=== PATIENT | female | born 1985 | race African-American/Black ===

== ENCOUNTER 2020-11-04 10:48 | Outpatient (CLI) | payer OTHER, SELFPAY ==
--- NOTE | ~2020-11-04 | XR_ITS ---
EXAMINATION: XR shoulder LT min 2V DATE: 11/04/2020 11:13 INDICATION: Left shoulder pain post fall TECHNIQUE: AP internally and externally rotated, AP oblique externally rotated and transscapular Y vi ews of the left shoulder were obtained. COMPARISON: None FINDINGS: Alignment is normal. No fracture. Glenohumeral joint is normal. Acromioclavicular joint is normal. So ft tissues are unremarkable. Visualized portions of the lungs are clear. IMPRESSION: Negative left shoulder radiographs. Reviewed, dictated and finalized at location B.
--- NOTE | ~2020-11-04 | XR_ITS ---
EXAMINATION: XR wrist LT 2V DATE: 11/04/2020 11:14 INDICATION: Left wrist pain. Fall. TECHNIQUE: 2 views of left wrist were obtained. COMPARISON: None. FINDINGS: Bone alignment is normal. No fracture. Joint spaces are well maintained. IMPRESSION: 1. Normal left wrist. Reviewed, dictated and finalized at location A. IMPRESSION: 1. Normal left wrist.
== END 2020-11-04 10:49 | disposition home or self-care (01) ==
LOC: CHSIMG 10:51
PROVIDERS: PCP Nurse Practitioner Family; Visit Provider Nurse Practitioner Family
DX: M25.512 Pain in left shoulder (principal); M25.532 Pain in left wrist
CPT/HCPCS: 73030; 73100

== ENCOUNTER 2021-07-03 12:43 | Outpatient (CLI) | payer BC, SELFPAY ==
[2021-07-03 14:22] LABS: SARS-CoV-2 RNA PCR Negative (Negative)
== END 2021-07-03 12:44 | disposition home or self-care (01) ==
PROVIDERS: PCP Nurse Practitioner Family; Visit Provider Nurse Practitioner Family
DX: Z20.822 Contact with and (suspected) exposure to COVID-19 (principal)
CPT/HCPCS: C9803; U0003; U0005

== ENCOUNTER 2021-08-07 17:41 | Outpatient (CLI) | payer BC, SELFPAY ==
[2021-08-07 18:43] LABS: SARS-CoV-2 Ag Negative (Negative)
== END 2021-08-07 17:42 | disposition home or self-care (01) ==
LOC: CHSLAB 17:43
PROVIDERS: PCP Nurse Practitioner Family; Visit Provider Nurse Practitioner Family
DX: Z20.822 Contact with and (suspected) exposure to COVID-19 (principal)
CPT/HCPCS: 87426; C9803

== ENCOUNTER 2021-10-12 13:17 | Outpatient (CLI) | payer BC, SELFPAY ==
--- NOTE | ~2021-10-12 | XR_ITS ---
EXAMINATION: XR knee LT 3V DATE: 10/12/2021 13:36 INDICATION: Left knee pain. TECHNIQUE: 3 views of left knee were obtained. COMPARISON: None. FINDINGS: Bone alignment is normal. No fracture. There is mild osteoarthritis of patellofemoral francis rtment characterized by tiny osteophytes. No knee joint effusion. IMPRESSION: 1. Mild left knee osteoarthritis. Reviewed, dictated and finalized at location A.
== END 2021-10-12 13:18 | disposition home or self-care (01) ==
LOC: CHSIMG 13:20
PROVIDERS: PCP Family Medicine; Visit Provider Family Medicine
DX: M25.562 Pain in left knee (principal); R53.83 Other fatigue
CPT/HCPCS: 73562

== ENCOUNTER 2022-01-05 16:02 | Emergency (ER) | payer BC, SELFPAY ==
--- NOTE | ~2022-01-05 | XR_ITS ---
XR ankle LT min 3V DATE: 01/05/2022 17:25 INDICATION: Fall. Left ankle pain and swelling TECHNIQUE: 4 views COMPARISON: None FINDINGS: No fracture or dislocation of the ankle or disruption of the ankle mortise. No periosteal r eaction or bone destruction. IMPRESSION: Negative Reviewed, dictated and finalized at location A. IMPRESSION: Negative
--- NOTE | ~2022-01-05 | XR_ITS ---
XR foot LT min 3V DATE: 01/05/2022 17:25 INDICATION: Fall. Left ankle and foot pain and swelling TECHNIQUE: 4 views COMPARISON: None FINDINGS: No fracture or dislocation, periosteal reaction or bone destruction. IMPRESSION: No fracture or dislocation Reviewed, dictated and finalized at location A. IMPRESSION: No fracture or dislocation
[2022-01-05 16:05] VITALS: BP 124/85; PULSE 100; RESP 18; TEMP 36.7; O2SAT 100
--- NOTE | 2022-01-05 17:32 | ED.LOWEXIN ---
HPI - Extremity Injury (Lower) General Chief Complaint: Extremity Injury, Lower Stated Complaint: LT foot injury Time Seen by Provider: 01/05/22 16:06 Source: patient and RN notes reviewed Mode of arrival: wheelchair Limitations: no limitations History of Present Illness complaint: ankle injury and foot injury Onset (ago): day(s) (1) Injury: Left: ankle and foot Type of Injury: inversion Place: home Severity: mild Severity scale (1-10): 5 Relieving factors: nothing Exacerbating factors: weight bearing Context: fall Associated symptoms: snap/pop sensation and swelling Other symptoms: none Treatments prior to arrival: cold therapy and bandage Related Data Home Medications Medication Instructions Recorded Confirmed etonogestrel 68 mg subdermal 1 implant subdermal ONCE 10/23/20 01/05/22 implant (Nexplanon) Allergies Allergy/AdvReac Type Severity Reaction Status Date / Time aspirin Allergy Intermediate Other Verified 01/06/22 09:41 metronidazole [Flagyl] Allergy Intermediate Other Verified 01/06/22 09:41 nitrofurantoin [Macrobid] Allergy Intermediate Other Verified 01/06/22 09:41 ondansetron [Zofran] Allergy Intermediate Other Verified 01/06/22 09:41 Review of Systems Review of Systems: All systems reviewed & are unremarkable except as noted in HPI and below Constitutional: Constitutional: Reports no additional constitutional complaints Eyes: Eyes: Reports no additional eye complaints ENT: Reports system reviewed and no additional complaints, except as documented Cardiovascular: Cardiovascular: Reports no additional cardiovascular complaints Respiratory: Respiratory: Reports no additional respiratory complaints Gastrointestinal: Gastrointestinal: Reports no additional gastrointestinal complaints Genitourinary: Genitourinary: Reports no additional female genitourinary complaints Musculoskeletal: Musculoskeletal: Reports no additional musculoskeletal complaints Integumentary/Breasts: Skin/Breast: Reports system reviewed and no additional complaints, except as docu Neurologic: Reports system reviewed and no additional complaints, except as documented Psychiatric: Psychiatric: Reports no additional psychiatric complaints Endocrine: Endocrine: Reports no additional endocrine complaints Hematologic/Lymphatic: Hematologic/Lymphatic: Reports no additional hematologic/lymphatic complaints Allergic/Immunologic: Allergic/Immunologic: Reports no additional allergic/immunologic complaints [facility] Past Medical History Medical History Ankle sprain Family History Family History Mother Family history of type 2 diabetes mellitus Social History Social History Smoking status: Never smoker Exam Const: General: healthy appearing and no acute distress Nutritional Appearance: well nourished Orientation/consciousness: patient oriented x3 Limitations: no limitations HENMT: Head: normal to inspection Ears: external ears normal, TM's normal bilaterally and EAC's normal General nose exam: Normal external nose present and Normal nares present Face and sinus: normal facial exam and sinuses nontender Mouth: Yes Normal oral and palatal mucosa present and Yes moist mucous membranes Teeth and gingiva: dentition normal Throat: posterior oropharynx normal Eyes: Conjunctivae: conjunctivae normal Pupils: Equal, round and reactive pupils present EOM: EOMs intact bilaterally Neck: Neck: normal visual inspection, no lymphadenopathy and no meningeal signs Chest: Chest palpation & inspection: normal inspection of the chest Resp: Effort & Inspection: normal respiratory effort Auscultation: clear to auscultation bilaterally Cardio: Rate: regular rate Rhythm: regular rhythm GI: GI Palp: Yes Soft to palpation and No Tenderness to palpation present (GI)
[2022-01-05] MEDS: IBUPROFEN 400 MG TABLET 800 MG PO (17:34)
--- NOTE | 2022-01-05 18:05 | PC.NURSE ---
+PMS POST SHORT LEG APPLICATION. PT TOLERATED WELL.
[2022-01-05 18:15] VITALS: BP 128/76; PULSE 68; RESP 14; O2SAT 99
== END 2022-01-05 18:10 | disposition home or self-care (01) ==
PROVIDERS: Emergency Provider Emergency Medicine; PCP Family Medicine
DX: S93.402A Sprain of unspecified ligament of left ankle, initial encounter (principal)
CPT/HCPCS: 29515; 73610; 73630; 99284; A9270

== ENCOUNTER 2022-01-13 10:01 | Outpatient (RCR) | payer BC, SELFPAY ==
--- NOTE | 2022-01-13 13:41 | PTOPEVAL ---
Thank you for referring Omar Burton to [facility].? The patient is scheduled to be seen for therapy? ____x/week for ___ weeks. Please review, sign, date and return this plan of care TORRES. I agree with and certify that the following plan of care is medically necessary. Referring Physician Date Admitting Provider: Attending Provider: Hever Barrett DO Referring Provider: *PT Outpatient Evaluation Start: 01/13/22 09:47 Freq: Status: Active Protocol: Document 01/13/22 10:00 [facility] (Rec: 01/13/22 11:34 [facility] [id number]) Therapy Assessment Status Assessment Status Assessment Status Evaluation Outpatient Past Medical History Reproductive History Hx Section Yes: X4 Evaluation Information Problem Diagnosis L Ankle Pain Onset 01/05/22 Additional Evaluation Detail LEFS = 74% Functionally Impaired Subjective Information Pt reports that about a week Query Text:As Reported By Patient/ ago, she was carrying [employer] with her daughter and stepped wrong on her L foot. She says that she felt a pop and intense pain. She then went to the ER to see if she broke anything. XRAYs were negative. When walking on her foot without her boot on, she has pain on the bottom of her heel and up the back of her heel. When sitting, she has pain on the front of her good. She has been walking with the boot and crutches, but says that she is hesitant to walk much on her foot due to pain and unsteadiness. Walking also increases her ankle swelling. She has been icing and elevating her ankle while at home to keep her swelling and pain down. Prior Level of Function Comments Additional Prior Level of Function She used to be able to run Comments without difficulty and carryout any household task she wanted. Pain Assessment Timing of Pain Assessment Timing of Pain Assessment Pre-Treatment Pain Scale Pain Scale Used Numeric (1 - 10) Self Report Pain Assessment Left Ankle(s) Reported Pain Level 3 Lowest Pain Intensity 3 Greatest Pain Intensity
--- NOTE | 2022-05-04 07:48 | PCPTNOTE ---
janiyarina has not been back to therapy since January. as of this date, she will be dc'd from skilled PT services due to lack of return to finish POC. SOO
== END 2022-02-10 23:59 | disposition home or self-care (01) ==
LOC: CHSPT 10:01
PROVIDERS: PCP Family Medicine; Visit Provider Family Medicine
DX: S93.402A Sprain of unspecified ligament of left ankle, initial encounter (principal)
CPT/HCPCS: 97014; 97016; 97110; 97112; 97140; 97161; G0283

== ENCOUNTER 2022-05-10 08:32 | Outpatient (CLI) | payer BC, SELFPAY ==
[2022-05-10 09:38] LABS: Strep Group A RT-PCR Not Detected (Negative)
[2022-05-10 09:45] LABS: Influenza A QL RT-PCR Negative (Negative); Influenza B QL RT-PCR Negative (Negative); SARS-CoV-2 RNA PCR Negative (Negative)
== END 2022-05-10 08:33 | disposition home or self-care (01) ==
PROVIDERS: PCP Family Medicine; Visit Provider Family Medicine
DX: J06.9 Acute upper respiratory infection, unspecified (principal); Z20.822 Contact with and (suspected) exposure to COVID-19
CPT/HCPCS: 87502; 87651; C9803; U0003; U0005

== ENCOUNTER 2022-08-09 11:39 | Outpatient (CLI) | payer BC, SELFPAY ==
--- NOTE | 2022-08-09 11:54 | PC.NURSE ---
ambulatory for OP fluids and medications for headache, to 201
[2022-08-09] MEDS: SODIUM CHLORIDE 0.9% IV 1,000 ML 500 ML IVPB (12:09)
[2022-08-09] MEDS: PROCHLORPERAZINE EDISYLATE 10 MG/2 ML VIAL IV PUSH (12:13)
[2022-08-09] MEDS: diphenhydrAMINE HCl INJ 50 MG/ML VIAL IV PUSH (12:13)
--- NOTE | 2022-08-09 12:31 | PC.NURSE ---
frances mist, warm blanket and cool cloth to forehead per request, fluids infusing, medications given IV
--- NOTE | 2022-08-09 14:17 | PC.NURSE ---
discharged ambulatory with spouse, headache slightly better, feeling tired, advised to change position slowly, rest today
== END 2022-08-09 11:40 | disposition home or self-care (01) ==
LOC: CHSTREATRM 11:45
PROVIDERS: PCP Family Medicine; Visit Provider Family Medicine
DX: R51.9 Headache, unspecified (principal)
CPT/HCPCS: 96360; 96361; 96374; 96375; J0780; J1200; J7030

== ENCOUNTER 2022-11-03 13:09 | Outpatient (CLI) | payer BC, SELFPAY ==
--- NOTE | ~2022-11-03 | US_ITS ---
EXAMINATION: US venous doppler [facility] DATE: 11/03/2022 13:52 INDICATION: Left lower limb pain. TECHNIQUE: Grayscale ultrasound images without and with compression and Doppler ultrasound images of the left lower extremity veins were obtained. COMPARISON: None. FINDINGS: The visualized portions of left common femoral vein, profunda (deep) femoral vein, femoral vein, popl iteal vein, peroneal veins, posterior tibial veins, and greater saphenous vein outflow are patent. IMPRESSION: 1. No deep venous thrombosis. Reviewed, dictated and finalized at location A.
== END 2022-11-03 13:10 | disposition home or self-care (01) ==
LOC: CHSIMG 13:10
PROVIDERS: PCP Family Medicine; Visit Provider Nurse Practitioner Family
DX: R09.89 Other specified symptoms and signs involving the circulatory and respiratory systems (principal); M79.662 Pain in left lower leg
CPT/HCPCS: 93971

== ENCOUNTER 2022-11-04 10:34 | Outpatient (RCR) | payer BC, SELFPAY ==
--- NOTE | 2022-11-04 11:43 | PTOPEVAL1 ---
Assessment and note entered by JT File, PT Evaluation Information Assessment Status Evaluation Diagnosis sciatica Onset 11/01/22 Subjective Information patient reports she is having an acute flare up of sciatica in the L LE. she reports she has been managing sciatica for years. she reports she has started a new job lately that has her standing and walking more which has increased her pain. she reports it has been flare up most recently for the last month. she reports the pain goes all the way down the L LE. she describes her symptoms as toothache like pain or a braulio horse that wont go away. Reported Pain Level Pain Score 8: Self Report Assessment PT Clinical Summary mrs. siddiqui presents to skilled PT services for evaluation and treatment of L sciatica. she presents with signs and symptoms of L lumbar root pain causing sensory changes and pain in the L LE. she maintains strength equal to the R side. she would benefit from skilled PT services to improve her objective/functional deficits and progress towards a return to her prior level functional activity performance and quality of life. Plan of Care Interventions Electrical Stimulation,Hot Pack/Cold Pack,Manual Therapy,Neuro Re-education,Patient/Caregiver Educati,Therapeutic Activities,Therapeutic Exercise PT Services Indicated Yes Treatment Frequency and 3x weekly for 9 visits Duration These treatments will address the objective and functional deficits as defined above. The patient will be advanced safely and appropriately in order for the patient to progress towards his/her prior level of function. Additional exercises will be introduced and as well as a comprehensive home exercise program upon discharge, if needed, ?to ensure carryover of functional gains achieved in the clinic. This treatment plan has been reviewed and agreement upon by the patient.
--- NOTE | 2022-11-11 10:12 | PCPTNOTE ---
11/11/22 Mrs. Burton arrives to therapy today in increased pain in the lower back. She is having worse pain down her L LE, and now it is including the R LE. She is reporting worsening symptoms of numbness, tingling, and cramping in the bilateral LE's. Patient reports she is unable to stand for more than 20-30 minutes. She is not responding to treatment thus far, and therefore I would recommend patient follow up with MD, acquire an MRI of the lumbar spine, and be off work until symptoms begin to reduce. Duarte Martinez, DPT [phone]
== END 2022-11-11 23:59 | disposition home or self-care (01) ==
LOC: CHSPT 10:34
PROVIDERS: PCP Family Medicine; Visit Provider Nurse Practitioner Family
DX: M54.30 Sciatica, unspecified side (principal)
CPT/HCPCS: 97014; 97110; 97161; G0283

== ENCOUNTER 2022-11-15 09:45 | Outpatient (CLI) | payer BC, SELFPAY ==
--- NOTE | ~2022-11-15 | MR_ITS ---
MRI of the lumbar spine Clinical History: Sciatica, foot drop Technique: Axial T2-weighted images, and sagittal T1-weighted, T2-weighted, and T2 fat-sat images wer e acquired. Findings: There is no fracture the lumbar spine. There is a grade 1 retrolisthesis of L5 over S1. No bone marrow signal abnormality seen. At L1-L2, L2-L3, there is no disc bulge or herniation. No spinal canal stenosis or neural foraminal n arrowing. L3-L4, there is left foraminal disc bulge. There is minimal central canal stenosis. There is moderate to advanced left neural foraminal narrowing. Right neural foramen preserved. At L4-L5, there is no disc bulge or herniation. No spinal canal stenosis or neural foraminal narrowin g. At L5-S1, there is broad-based disc protrusion centrally, which in conjunction with mild facet arthro abby, results in severe thecal sac compression. There is moderate to severe bilateral neural foramin al narrowing. Paravertebral soft tissues are unremarkable. Impression: Severe thecal sac compression L5-S1, related to central posterior disc protrusion, likely superimpose d upon mild disc bulge. Associated moderate to severe bilateral neural foraminal narrowing is low. Left foraminal disc bulge at L3-L4, with associated moderate to advanced left neural foraminal narrow ing at this level. Minimal grade 1 retrolisthesis of L5 over S1. Reviewed, dictated and finalized at [facility]. Impression: Severe thecal sac compression L5-S1, related to central posterior disc protrusi on, likely superimposed upon mild disc bulge. Associated moderate to severe nelson ateral neural foraminal narrowing is low. Left foraminal disc bulge at L3-L4, with associated moderate to advanced left n eural foraminal narrowing at this level. Minimal grade 1 retrolisthesis of L5 over S1.
== END 2022-11-15 09:46 | disposition home or self-care (01) ==
PROVIDERS: PCP Family Medicine; Visit Provider Family Medicine
DX: M21.379 Foot drop, unspecified foot (principal); M54.30 Sciatica, unspecified side; G95.29 Other cord compression; M48.061 Spinal stenosis, lumbar region without neurogenic claudication; M51.36 Other intervertebral disc degeneration, lumbar region; M43.16 Spondylolisthesis, lumbar region
CPT/HCPCS: 72148

== ENCOUNTER 2023-02-10 10:22 | Outpatient (CLI) | payer BC, SELFPAY ==
--- NOTE | ~2023-02-10 | XR_ITS ---
Left wrist Technique: PA, oblique, lateral, and ulnar deviation views were obtained. Clinical History: Pain Findings: No acute fracture or dislocation is seen. Osseous alignment is anatomic. Joint spaces are p reserved. Soft tissues are unremarkable. Impression: Unremarkable left wrist radiographs. Reviewed, dictated and finalized at location . Impression: Unremarkable left wrist radiographs.
== END 2023-02-10 10:23 | disposition home or self-care (01) ==
LOC: CHSIMG 10:24
PROVIDERS: PCP Nurse Practitioner Family; Visit Provider Nurse Practitioner Family
DX: S69.92XA Unspecified injury of left wrist, hand and finger(s), initial encounter (principal)
CPT/HCPCS: 73110

== ENCOUNTER 2023-02-26 09:45 | Emergency (ER) | payer BC, SELFPAY ==
--- NOTE | ~2023-02-26 | XR_ITS ---
XR lumbar spine 2-3V DATE: 02/26/2023 10:45 INDICATION: Low back pain radiating to right leg. History of spinal stenosis. TECHNIQUE: AP, lateral, coned lateral lumbosacral views COMPARISON: November 15, 2022 MRI lumbar spine FINDINGS: The pedicles appear relatively short in AP dimension which may be consistent with clinical history of primary spinal stenosis. Normal alignment of the lumbar spine. No fracture, spondylolisthesis or bone destruction is evident. Included lower thoracic and lumbar pedicles are intact. Lumbar and lumbosacral interspaces appear relatively preserved. The sacroiliac joints are intact. Prevascular prominently calcified density overlying the right upper quadrant, likely due to cholelith iasis. IMPRESSION: Suggestion of primary lumbar spinal stenosis Probable 1.5 cm calcified gallstone Reviewed, dictated and finalized at location A.
[2023-02-26 10:00] VITALS: BP 142/82; PULSE 108; RESP 20; TEMP 37.1; O2SAT 98
--- NOTE | 2023-02-26 10:08 | ED.BACK ---
HPI - Back Pain/Injury General Chief Complaint: Back Pain/Injury Stated Complaint: lower back pain Time Seen by Provider: 02/26/23 09:46 Source: patient Mode of arrival: ambulatory Limitations: no limitations History of Present Illness HPI Narrative: patient is a 37-year-old female with chronic lumbar spinal stenosis and disc herniation. She sees a neurosurgeon and they do spine injections which were done over a month ago. Unfortunately, she fell in the last few weeks and possibly irritated her lumbar spine. MD elicited complaint: back pain, back injury and fall Pertinent past history: prior back pain and recent trauma ( Patient fell a few weeks ago and landed on her right arm /hand and felt like she irritated her lower back chronic problems) Onset (ago): day(s) (3) Timing: constant Severity: moderate Pain scale (0-10): 10 Similar Symptoms Previously: Yes Quality: sharp Location: lumbar spine Radiation: buttocks and left upper leg Exacerbating factors: none Relieving factors: none Associated symptoms: denies other symptoms Work related injury: No Related Data Home Medications Medication Instructions Recorded Confirmed etonogestrel 68 mg subdermal 1 implant subdermal ONCE 10/23/20 02/26/23 implant (Nexplanon) semaglutide (weight loss) 0.5 0.5 mg subcut WEEKLY 02/26/23 02/26/23 mg/0.5 mL subcutaneous pen injector (Wegovy) Allergies Allergy/AdvReac Type Severity Reaction Status Date / Time aspirin Allergy Intermediate Other Verified 02/26/23 10:09 metronidazole [Flagyl] Allergy Intermediate Other Verified 02/26/23 10:09 nitrofurantoin [Macrobid] Allergy Intermediate Other Verified 02/26/23 10:09 ondansetron [Zofran] Allergy Intermediate Other Verified 02/26/23 10:09 Review of Systems Review of Systems: All systems reviewed & are unremarkable except as noted in HPI and below Constitutional: Constitutional: Reports no additional constitutional complaints Eyes: Eyes: Reports no additional eye complaints ENT: Reports system reviewed and no additional complaints, except as documented Cardiovascular: Cardiovascular: Reports no additional cardiovascular complaints Respiratory: Respiratory: Reports no additional respiratory complaints Gastrointestinal: Gastrointestinal: Reports no additional gastrointestinal complaints Genitourinary: Genitourinary: Reports no additional female genitourinary complaints Musculoskeletal: Musculoskeletal: Reports no additional musculoskeletal complaints Integumentary/Breasts: Skin/Breast: Reports system reviewed and no additional complaints, except as docu Neurologic: Reports system reviewed and no additional complaints, except as documented Psychiatric: Psychiatric: Reports no additional psychiatric complaints Endocrine: Endocrine: Reports no additional endocrine complaints Hematologic/Lymphatic: Hematologic/Lymphatic: Reports no additional hematologic/lymphatic complaints Allergic/Immunologic: Allergic/Immunologic: Reports no additional allergic/immunologic complaints PMFSH Past Medical History Medical History Ankle sprain Family History Family History Mother Family history of type 2 diabetes mellitus Social History Social History Smoking status: Never smoker Lack of Transportation: No Lack of Food: Never True Current Housing: I Have Housing Concerned About Future Housing: No Difficulty Paying Gas/Electric Bills: No Difficulty Paying for Meds: No Currently Unemployed: No Education: High School Diploma/GED Difficulty w/ Childcare or Family Care: No Exam Const: General: healthy appearing Nutritional Appearance: well nourished Orientation/consciousness: patient oriented x3 Limitations: no limitations HENMT: Head: normal to inspection Ears: external ears normal Face/Nose
[2023-02-26 10:15] LABS: Appearance Urine Clear (Clear); Bilirubin Urine Negative (Negative); Blood Urine Negative (Negative); Color Urine Light Yellow (Yellow); Glucose Urine UA Negative (Negative); Ketones Urine Negative (Negative); Leukocyte Esterase Ur 2+ (Negative); Nitrate Urine Negative (Negative); Protein Urine Negative (Negative); Urobilinogen Urine 0.2 mg/dL (0.2-1.0)
[2023-02-26] MEDS: KETOROLAC (*BKC) 60 MG/2 ML VIAL IM (10:16)
[2023-02-26] MEDS: predniSONE 20 MG TABLET 40 MG PO (10:17)
[2023-02-26 10:21] LABS: Add Urine Microscopic? NO; Bacteria Urine 3+ /hpf; Budding Yeast Urine Present /hpf; RBC Urine 0-2 /hpf (0-2); Squamous Epithelial Cell Urine Moderate /hpf (Few)
[2023-02-26 10:23] LABS: Pregnancy On Board Control Positive; Urine Pregnancy Test Negative
[2023-02-26 11:52] VITALS: BP 138/78; PULSE 98; RESP 20; TEMP 36.9; O2SAT 99
== END 2023-02-26 11:56 | disposition home or self-care (01) ==
PROVIDERS: Emergency Provider Emergency Medicine
DX: B37.49 Other urogenital candidiasis (principal); M54.32 Sciatica, left side; N30.00 Acute cystitis without hematuria; M48.061 Spinal stenosis, lumbar region without neurogenic claudication; W19.XXXA Unspecified fall, initial encounter
CPT/HCPCS: 72100; 81003; 81025; 96372; 99283; J1885; J7512

== ENCOUNTER 2023-04-14 17:03 | Outpatient (CLI) | payer BC, SELFPAY ==
[2023-04-14 17:49] LABS: Strep Group A RT-PCR NOT DETECTED (Negative)
== END 2023-04-14 17:04 | disposition home or self-care (01) ==
LOC: CHSLAB 17:05
PROVIDERS: PCP Family Medicine; Visit Provider Family Medicine
DX: J02.9 Acute pharyngitis, unspecified (principal)
CPT/HCPCS: 87651

== ENCOUNTER 2023-04-21 17:00 | Outpatient (CLI) | payer BC, SELFPAY ==
[2023-04-21 17:13] LABS: Appearance Urine Slightly Cloudy (Clear); Bilirubin Urine Negative (Negative); Blood Urine Negative (Negative); Color Urine Light Yellow (Yellow); Glucose Urine UA Negative (Negative); Ketones Urine Negative (Negative); Leukocyte Esterase Ur 1+ LEU/UL (Negative); Nitrate Urine Negative (Negative); Protein Urine Negative (Negative); Specific Grav Ur >= 1.030 (1.010-1.020)
[2023-04-21 17:17] LABS: Add Urine Microscopic? YES; RBC Urine None seen /hpf (0-2)
[2023-04-21 17:18] LABS: Bacteria Urine 1+ /hpf; Squamous Epithelial Cell Urine Many /hpf (Few)
[2023-04-22 10:26] LABS: Pregnancy On Board Control Positive; Urine Pregnancy Test Negative
== END 2023-04-21 17:01 | disposition home or self-care (01) ==
LOC: CHSLAB 17:02
PROVIDERS: Nurse Practitioner Family; PCP Nurse Practitioner Family; Visit Provider Nurse Practitioner Family
DX: R35.0 Frequency of micturition (principal); R11.0 Nausea; R82.90 Unspecified abnormal findings in urine
CPT/HCPCS: 81001; 81025; 87086

== ENCOUNTER 2023-06-07 14:46 | Outpatient (CLI) | payer BC, SELFPAY ==
[2023-06-07 15:00] LABS: Basophils Absolute Auto 0.09 K/mm3 (0.00-0.10); Basophils Percent Auto 1.4 % (0.0-1.0); Eosinophils Absolute Auto 0.12 K/mm3 (0.02-0.50); Eosinophils Percent Auto 1.8 % (1.0-6.0); Hematocrit 41.9 % (35.0-49.0); Hemoglobin 13.6 g/dL (12.0-15.0); Immature Granulocyte Absolute 0.01 K/mm3 (0.00-0.00); Immature Granulocyte Percent A 0.2 % (0.0-0.0); Lymphocytes Absolute Auto 2.67 K/mm3 (1.10-4.50); Lymphocytes Percent Auto 40.4 % (18.0-42.0); Mean Corpuscular HGB Conc 32.5 g/dL (32.0-36.0); Mean Corpuscular Hemoglobin 29.4 pg (27.0-31.0); Mean Corpuscular Volume 90.5 fL (78.0-102.0); Mean Platelet Volume 9.8 fl (9.2-11.8); Monocytes Absolute Auto 0.59 K/mm3 (0.10-0.90); Monocytes Percent Auto 8.9 % (2.0-11.0); Neutrophils Absolute Auto 3.1 K/mm3 (1.7-7.2); Neutrophils Percent Auto 47.3 % (50.0-70.0); Platelet Count Result 402 K/mm3 (150-420); Red Blood Count 4.63 M/mm3 (4.20-5.40); Red Cell Distribution Width 12.4 % (11.6-14.4); White Blood Count 6.6 K/mm3 (4.8-10.8)
[2023-06-07 15:53] LABS: Ferritin 241 ng/mL (8-252)
== END 2023-06-07 14:47 | disposition home or self-care (01) ==
LOC: CHSLAB 14:48
PROVIDERS: PCP Family Medicine; Visit Provider Family Medicine
DX: N93.9 Abnormal uterine and vaginal bleeding, unspecified (principal)
CPT/HCPCS: 36415; 82728; 85025

== ENCOUNTER 2023-11-23 08:21 | Outpatient (CLI) | payer BC, SELFPAY ==
[2023-11-23 10:05] LABS: Beta HCG Quantitative < 1.00 mIU/mL (0-6)
== END 2023-11-23 08:22 | disposition home or self-care (01) ==
LOC: CHSLAB 08:24
PROVIDERS: PCP Family Medicine
DX: N92.6 Irregular menstruation, unspecified (principal)
CPT/HCPCS: 36415; 84702

== ENCOUNTER 2023-12-19 11:56 | Outpatient (CLI) | payer BC, SELFPAY | END 2023-12-19 11:57 | disposition home or self-care (01) | PROVIDERS: PCP Nurse Practitioner Family | DX: N92.6 Irregular menstruation, unspecified (principal) | CPT/HCPCS: 36415; 84702 ==

== ENCOUNTER 2024-03-08 12:31 | Outpatient (CLI) | payer BC, SELFPAY ==
[2024-03-08 12:45] LABS: Add Urine Microscopic? YES; Appearance Urine Clear (Clear); Bilirubin Urine Negative (Negative); Blood Urine Negative (Negative); Color Urine Light Yellow (Yellow); Glucose Urine UA Negative (Negative); Ketones Urine Negative (Negative); Leukocyte Esterase Ur Trace (Negative); Nitrate Urine Negative (Negative); Protein Urine Negative (Negative); Urobilinogen Urine 0.2 mg/dL (0.2-1.0)
[2024-03-08 12:50] LABS: RBC Urine None seen /hpf (0-2)
[2024-03-08 12:51] LABS: Bacteria Urine 1+ /hpf; Squamous Epithelial Cell Urine Moderate /hpf (Few); WBC Urine 0-3 /hpf (0-3)
== END 2024-03-08 12:32 | disposition home or self-care (01) ==
LOC: CHSLAB 12:34
PROVIDERS: PCP Nurse Practitioner Family; Visit Provider Obstetrics & Gynecology
DX: R39.9 Unspecified symptoms and signs involving the genitourinary system (principal)
CPT/HCPCS: 81001; 87077; 87086; 87088; 87186

== ENCOUNTER 2024-05-20 10:30 | Emergency (ER) | payer BC, SELFPAY ==
--- NOTE | ~2024-05-20 | XR_ITS ---
AP view of the pelvis and AP and lateral views of the left hip Clinical history: Pain Findings: No acute fracture or dislocation is seen. Osseous alignment is anatomic. Bilateral hip and SI joint spaces are preserved. Soft tissues are unremarkable. Impression: No significant abnormality is seen. Reviewed, dictated and finalized at [facility]. Impression: No significant abnormality is seen.
--- NOTE | ~2024-05-20 | XR_ITS ---
Left ankle Technique: AP, oblique, and lateral views were obtained. Clinical History: Pain Findings: No acute fracture or dislocation is seen. Osseous alignment is anatomic. Ankle mortise and other visualized joint spaces are preserved. Soft tissues are otherwise unremarkable. Impression: No acute abnormality. Reviewed, dictated and finalized at location . Impression: No acute abnormality.
[2024-05-20 10:30] VITALS: BP 135/93; PULSE 100; RESP 16; TEMP 36.4; O2SAT 99
--- NOTE | 2024-05-20 10:39 | ED.GENADULT ---
HPI - General Adult General Chief complaint: Extremity Injury, Lower Stated complaint: left ankle injury Time Seen by Provider: 05/20/24 10:37 History of Present Illness HPI narrative: Omar is a 38F with a PMH chronic back pain, BPPV, HTN, sciatica, migraines, and fatigue that presented to the ED with left ankle pain. It buckled and cracked just before becoming in, then she fell on her left hip/buttock. She did not hit her head or neck. Related Data Allergies Allergy/AdvReac Type Severity Reaction Status Date / Time aspirin Allergy Intermediate Other Verified 07/04/23 10:18 metronidazole [Flagyl] Allergy Intermediate Other Verified 07/04/23 10:18 nitrofurantoin [Macrobid] Allergy Intermediate Other Verified 07/04/23 10:18 ondansetron [Zofran] Allergy Intermediate Other Verified 07/04/23 10:18 Review of Systems Review of Systems: All systems reviewed & are unremarkable except as noted in HPI and below PMFSH Past Medical History Medical History Ankle sprain Family History Family History Mother Family history of type 2 diabetes mellitus Social History Social History Smoking status: Never smoker Lack of Transportation: No Lack of Food: Never True Current Housing: I Have Housing Concerned About Future Housing: No Difficulty Paying Gas/Electric Bills: No Difficulty Paying for Meds: No Currently Unemployed: No Education: High School Diploma/GED Difficulty w/ Childcare or Family Care: No Exam Const: General: cooperative, healthy appearing, comfortable, no acute distress, well developed, alert, awake and Physically active Orientation/consciousness: oriented to person, oriented to place and oriented to time HENMT: Head: normal to inspection, normocephalic and atraumatic Ears: hearing grossly normal bilaterally and external ears normal Face/Nose/Sinus: Normal external nose present Eyes: General: appearance normal, both eyes and all related structures Periorbital: periorbital findings normal Sclera: sclerae normal Pupils: Equal, round and reactive pupils present Neck: Neck: normal visual inspection Chest: Chest palpation & inspection: normal inspection of the chest Resp: Effort & Inspection: normal respiratory effort, able to speak in complete sentences and no respiratory distress Cardio: Jugular venous distension: no JVD Skin: General skin exam: normal color and no rashes or lesions noted Neuro: General: oriented to person, oriented to place and oriented to time Cranial nerves: Yes Equal, round and reactive pupils present Extrem: General: normal to inspection Other: left ankle is TTP over the lateral malleolus and navicular bone Course Course Emergency Course: Given ibuprofen for pain. Ordered radiographs. Left ankle Technique: AP, oblique, and lateral views were obtained. Clinical History: Pain Findings: No acute fracture or dislocation is seen. Osseous alignment is anatomic. Ankle mortise and other visualized joint spaces are preserved. Soft tissues are otherwise unremarkable. Impression: No acute abnormality. AP view of the pelvis and AP and lateral views of the left hip Clinical history: Pain Findings: No acute fracture or dislocation is seen. Osseous alignment is anatomic. Bilateral hip and SI joint spaces are preserved. Soft tissues are unremarkable. Impression: No significant abnormality is seen. Vital Signs Vital signs: Vital Signs Temperature 97.6 F 05/20/24 10:30 Pulse Rate 100 05/20/24 10:30 Respiratory Rate 16 05/20/24 10:30 Blood Pressure 135/93 H 05/20/24 10:30 Pulse Oximetry 99 05/20/24 10:30 Oxygen Delivery Room Air 05/20/24 10:30 Temperature 97.6 F 05/20/24 10:30 Pulse Rate 100 05/20/24 10:30 Respiratory Rate 16 05/20/24 10:30 Blood Pressure 135/93 H 10
[2024-05-20] MEDS: IBUPROFEN 400 MG TABLET PO (10:50)
[2024-05-20 11:17] LABS: Pregnancy On Board Control Positive; Urine Pregnancy Test Negative
== END 2024-05-20 12:06 | disposition home or self-care (01) ==
PROVIDERS: Emergency Provider Family Medicine; PCP Family Medicine
DX: S93.402A Sprain of unspecified ligament of left ankle, initial encounter (principal); I10 Essential (primary) hypertension; W19.XXXA Unspecified fall, initial encounter
CPT/HCPCS: 73502; 73610; 81025; 99284; A9270

== ENCOUNTER 2024-06-12 12:55 | Outpatient (RCR) | payer BC, SELFPAY ==
--- NOTE | 2024-06-12 14:21 | OPREHPOC ---
Outpatient Therapy Plan of Care This is a Multidisciplinary Plan of Care that may contain components documented by all disciplines (PT, OT, and ST.) PT Problem 1 PT Problem #1 Knowledge Deficit PT Goal 1 Goal / Goal Update The patient will be independent in a home exercise program. Target Visit 4 PT Problem 2 PT Problem #2 Pain PT Goal 1 Goal / Goal Update The patient will report no greater than 3/10 left ankle pain with standing and walking. Target Visit 10 PT Problem 3 PT Problem #3 Impaired Functional Mobil PT Goal 1 Goal / Goal Update The patient will demonstrate 30% or less self perceived disability per the LEFS. The patient will demonstrate the ability to ambulate 1,000 feet during the 6 minute walk test to improve community ambulation. Target Visit 10 PT Problem 4 PT Problem #4 Impaired Range of Motion PT Goal 1 Goal / Goal Update The patient will demonstate 5 degrees bilateral ankle dorsiflexion to improve gait. Target Visit 10 PT Goal 1 Goal / Goal Update The patient will demonstrate at least 4/5 left ankle strength to improve gait and balance. Target Visit 10
--- NOTE | 2024-06-12 14:21 | PTOPEVAL1 ---
Assessment and note entered by Noreen Quintanilla, PT Evaluation Information Assessment Status Evaluation Diagnosis L ATFL sprain Other ICD-10 Condition Codes ( S93.492D, M25.372 PT) Onset 05/20/24 Subjective Information Omar Burton reports she tore ligaments in her left ankle on 05/20/24 when she slipped on a dress and her ankle rolled in. She had a x-ray and then a MRI that showed her ATFL is completely ruptured and her spring ligament has a moderate tear. She will see an orthopedic surgeon on 06/14/24 to determine if she needs surgery. She was in a boot for 2 weeks and now she wears a lace up ankle brace. 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 She has left lateral and anterior ankle pain as well as left heel pain with weight bearing activity. She does not have pain at rest until she has been sitting for 2 hours or more and then it starts throbbing. She has been using ice, ibuprofen, and elevation for pain and swelling control. Reported Pain Level Pain Score 6: Self Report Assessment PT Clinical Summary Omar Burton presents with left ankle pain following a sprain sustained on 05/20/24. She has since underwent a MRI that showed a complete rupture of the anterior talofibular ligament and moderate sprain of the spring ligament. She has difficulty with walking and putting weight on the left LE. She objectively demonstrates swelling over the left lateral ankle, tenderness on the left lateral and anterior ankle joint, decreased L > R ankle AROM, decreased left ankle stability, and decreased left ankle strength. She will benefit from skilled PT to address these limitations. Plan of Care Interventions Electrical Stimulation,Gait Training,Hot Pack/Cold Pack,Neuro Re-education,Patient/Caregiver Educati ,Therapeutic Activities,Therapeutic Exercise PT Services Indicated Yes Treatment Frequency and 2 times per week for 10 visits Duration These treatments will address the objective and functional deficits as defined above. The patient will be advanced safely and appropriately in order for the patient to progress towards his/her prior level of function. Additional exercises will be introduced and as well as a comprehensive home exercise program upon discharge, if needed, ?to ensure carryover of functional gains achieved in the clinic. This treatment plan has been reviewed and agreement upon by the patient.
--- NOTE | 2024-07-31 08:45 | PCPTNOTE ---
07/31/24: Pt last seen on 06/19/24 for her 2nd visit. She did not show up on 06/22/24 and has not followed up since then. She will be discharged. -Noreen Quintanilla, PT
--- NOTE | 2024-07-31 08:47 | PCPTNOTE ---
07/31/24: Pt last seen on 12/23/23. She reported she was going to a new doctor on 04/12/24 however, she did not return with new orders. She is discharged. -Noreen Quintanilla, PT
== END 2024-06-19 17:45 | disposition home or self-care (01) ==
LOC: CHSPT 12:55
PROVIDERS: Visit Provider Nurse Practitioner Family
DX: S93.492D Sprain of other ligament of left ankle, subsequent encounter (principal); M25.372 Other instability, left ankle
CPT/HCPCS: 97016; 97110; 97161

== ENCOUNTER 2025-02-13 17:15 | Outpatient (CLI) | payer BC, SELFPAY ==
--- NOTE | ~2025-02-13 | CT_ITS ---
CT abdomen pelvis wo con Ordering provider: Kathleen Horvath, History: 39 years Female with . ABDOMINAL PAIN . Comparison: None. Technique: CT abdomen and pelvis without IV and without oral contrast. Automated exposure control and iterative reconstruction technique were employed. The dose-length product was 362.64 mGy-cm. Findings: VISUALIZED LOWER CHEST: Normal. Lymph nodes calcification. UPPER ABDOMINAL ORGANS: Liver: Normal. Gallbladder: Cholelithiasis. Spleen: Normal. Stomach/duodenum: Normal. Pancreas: Normal. Adrenals: Normal. Kidneys: Normal. PELVIC ORGANS: The bladder is slightly underfilled with thickened wall. Further evaluation for cystit is advised. BOWEL AND MESENTERY: Colon: No evidence of diverticulitis. No evidence of appendicitis. Small Bowel: Normal. No obstruction. Peritoneum/mesentery: No free air or free fluid. No mesenteric lymphadenopathy. RETROPERITONEUM: Normal aorta. No retroperitoneal lymphadenopathy. MUSCULOSKELETAL: Superficial soft tissues: The superficial soft tissues are normal. Bones: Normal spine. IMPRESSION: 1. No evidence of appendicitis, diverticulitis or intestinal obstruction. 2. Cholelithiasis. Reviewed, dictated and finalized at location A.
--- OUTSIDE RECORDS SUMMARY | 2025-02-13 17:20 | XMS_ITS | Encounter Summary ---
Author Organization [facility] Address [address] [place] [address] Care Team Providers Care Compression Molding Machine Tender Name Role Phone Shawn Luna MD Unavailable Unavailable Kathleen Horvath MD Primary Care Provider [phone] Encounter Details Date Type Department Care Team (Late st Contact Info) Description 10/15/2017 Abstract [facility] CONVERSION [address] [place] [address] , Generic ConversionMD Social History Tobacco Use Types Packs/Day Years Used Date Smoking Tobacco: Never Comments Unknown Sex and Gender Information Value Date Recorded Sex Assigned at Not on file Legal Sex Female 5:20 PM CDT Gender Identity Not on file Sexual Orientation Not on file documented as of this encounter Plan of Treatment Not on file documented as of this encounter Visit Diagnoses Not on filedocumented in this encounter Care Teams Compression Molding Machine Tender Relationship Specialty Start Date End Date Kathleen Horvath MD [address] [place] [id number] PCP - General FAMILY PRACTICE 05/24/24 Shawn Luna MD CARDIOVASCULAR DISEASE 03/26/16 08/08/19 documented as of this encounter
--- OUTSIDE RECORDS SUMMARY | 2025-02-13 17:20 | XMS_ITS | Clinical Summary ---
Author Organization [facility] Address [address] [place] [address] Care Team Providers Care Saddle Stitching Machine Operator Name Role Phone [place] Hever Matias DO Primary Care Provider Allergies Active Allergy Reactions Criticality Noted Date Comments Aspirin Anaphylaxis High 09/14/2019 Metronidazole Anaphylaxis High 09/14/2019 Nitrofurantoin Anaphylaxis High 09/14/2019 Ondansetron Anaphylaxis High 09/14/2019 Medications escitalopram (LEXAPRO) 10 mg tablet Take 1 tablet (10 mg total) by mouth daily 2 Active triamcinolone (KENALOG) 0.1 % ointmentIndicatio ns:Skin Inflammation Apply topically 2 (two) times a day 30 g 3 Active albuterol HFA (PROVENTIL HFA,VENTOLIN HFA,PROAIR HFA) 90 mcg/actuation inhaler INHALE 1 PUFF BY MOUTH EVERY 4 HOURS NEEDED FOR SHORTNESS OF BREATH OR WHEEZING 3 Active vit 65-qvud-xhohu-dha 27mg iron- 800 mcg-250 mg capsuleIndication s:Prevention of Neural Tube Defects Take 1 tablet/capsule by mouth daily 30 capsule 11 4 Active fluconazole (DIFLUCAN) 150 mg tablet Take one tablet and repeat in 3 days. 2 tablet 4 Active Active Problems Problem Noted Date Diagnosed Date Encounter for preconception consultation 024 Assessment & Plan (11/30/2023 6:45 AM CDT): Start vitamin, prescription sent to pharmacy. Continue to track/monitor cycles. Patient states she is going to plan on doing a home ovulation kit this month to try to target her peak ovulation, consider 21 day progesterone or additional lab work if home test does not indicate she is ovulating. Will have patient sign a release of information to obtain past obstetrical history from [facility]. Family History Medical History Relation Name Comments Breast cancer Neg Hx Colon cancer Neg Hx Ovarian cancer Neg Hx Uterine cancer Neg Hx Social History Tobacco Use Types Packs/Day Years Used Date Smoking Tobacco: Never Tobacco Cessation:Counseling Given: Not Answered Alcohol Use Standard Drinks/Week Comments Not Currently 0 (1 standard drink = 0.6 oz pur e alcohol) AUDIT-C Answer Date Recorded Frequency of Alcohol Consumption Never 09/14/2019 Average Number of Drinks Not on file 020 Frequency of Binge Drinking Not on file 09/01 PHQ-2 Answer Date Recorded PHQ-2 Total Score 0 04/05/2023 Personal Safety Answer Date Recorded Getting School Help Needed Not on file 09/21 Comments No Sex and Gender Information Value Date Recorded Sex Assigned at Not on file Legal Sex Female 3:36 PM GEAR ROOM KEEPER Gender Identity Not on file Sexual Orientation Not on file Obstetrics History Para Term AB IAB SAB Ectopic Multiple Livin g Live Births 5 4 4 1 1 4 Date Outcome GA Total Labor Labor/2nd/3rd Weight Sex Type Anes PTL Maura A1 A5 Name Clin Term Term Term Term 024 SAB 5w3d SAB Last Filed Vital Signs Vital Sign Reading Time Taken Comments Blood Pressure 144/79 01/11/2024 8:52 PM CDT Pulse 112 01/11/2024 8:52 PM CDT Temperature 36.9 C (98.4 F) 01/11/2024 8:52 PM CDT Respiratory Rate 18 01/11/2024 8:52 PM CDT Oxygen Saturation 100% 01/11/2024 8:52 PM CDT Inhaled Oxygen Concentration - - Weight 93 kg (205 lb) 10/03/2023 1:48 PM GEAR ROOM KEEPER Height 162.6 cm (5' 4) 10/03/2023 1:48 PM GEAR ROOM KEEPER Body Mass Index 35.19 10/03/2023 1:48 PM GEAR ROOM KEEPER Plan of Treatment Health Maintenance Due Date Last Done Comments Hepatitis C Screening 1986 DTaP/Tdap/Td Vaccine (6 - Tdap) 1997 02/07/1991, 06/09/1988, 06/04/1987, Additional history exists Varicella Vaccines (1 of 2 - 13+ 2-dose series) 10/14/1999 Cervical Cancer Screening 09/14/2020 09/14/2019 Regular Well Visit/Exam 18-64 09/14/2020 09/14/2019 Depression Screening 04/05/2024 04/05/2023, 09/14/19 20 Influenza Vaccine (#1) 2025 04/08/2016 Hepatitis B Screening Completed 02/05/1998 , 09/11/1997, 06/21/1997 HPV Vaccines Aged Out No longer eligi ble based on patient's age to complete this topic Pneumococcal vaccine <65 Aged Out No longer eligible based on patient's age to complete this topic Procedures Procedure Name Priority Date/Time Associated Diagnosis Comments PAP IG, HPV-HR Routine 09/14/2019 2:08 PM GEAR ROOM KEEPER Well woman exam from Last 3 Months or Most Recently Relevant to Health Maintenance Results * Pap IG, HPV-hr (09/14/2019 2:08 PM GEAR ROOM KEEPER) Clinical indication Comment [facility] - 01 Comment: NEGATIVE FOR INTRAEPITHELIAL LESION OR MALIGNANCY. FUNGAL ORGANISMS MORPHOLOGICALLY CONSISTENT WITH ANIL SPECIES ARE PRESENT. THIS SPECIMEN WAS RESCREENED PART OF OUR ASSEMBLY MACHINE OPERATOR PROGRAM. Specimen adequacy: Comment [facility] - 01 Comment: Satisfactory for evaluation. Endocervical and/or squamous metaplastic cells (endocervical component) are present. Clinician provided ICD10 Comment [facility] - 01 Comment:Z01.419 Performed by Comment [facility] - 01 Comment:Vicky Melton, Cyto technologist (ASCP) QC reviewed by Comment [facility] - 01 Comment:Endy Mobley ytotechnologist (ASCP) . . [facility] - 01 Note: Comment [facility] - 01 Comment: The Pap smear is a screening test designed to aid in the detection of premalignant and malignant conditions of the uterine cervix. It is not a diagnostic procedure and should not be used as the sole means of detecting cervical cancer. Both false-positive and false-negative reports do occur. Test methodology Comment [facility] - 01 Comment: This liquid based ThinPrep(R) pap test was screened with the use of an image guided system. HPV, high-risk Negative Negative [facility] 02 Comment: This nucleic acid amplification high-risk HPV test detects thirteen high-risk types (16,18,31,33,35,39,45,51,52,56,58,59,68) without differentiation. Endocervical/vagi nal 09/14/2019 2:08 PM GEAR ROOM KEEPER 09/14/2019 Narrative [facility] - 09/19/2019 5:08 PM GEAR ROOM KEEPER Performed at: - [facility] [id number] Management Lead: Selena Valle MD, Phone: [phone] Performed at: - [facility] [id number] Management Lead: Selena Valle MD, Phone: [phone] Specimen Comment: No. of containers..01 ThinPrep Vial Gladys King NP LAB PATHOLOGY ORDERABLES Final R esult [facility] - 01 [facility] 02 from Last 3 Months or Most Recently Relevant to Health Maintenance Insurance [employer] Care Teams Saddle Stitching Machine Operator Relationship Specialty Start Date End Date Hever Barrett DO [address] [place] [address] PCP - General Family Medicine 01/11/24
--- OUTSIDE RECORDS SUMMARY | 2025-02-13 17:20 | XMS_ITS | Clinical Summary ---
Author Organization [facility] Address [address] [place] [address] Care Team Providers Care Geoscience Technician Name Role Phone Kathleen Horvath MD Primary Care Provider [phone]- [phone] Allergies Active Allergy Reactions Criticality Noted Date Comments Aspirin Anaphylaxis High 01/09/2016 Metronidazole Anaphylaxis High 01/09/2016 Nitrofurantoin Anaphylaxis High 09/14/2019 Ondansetron Anaphylaxis High 01/09/2016 Medications escitalopram (LEXAPRO) 10 MG tablet Take 1 tablet (10 mg total) by mouth daily. 05/12/2024 Active cyclobenzaprine (FLEXERIL) 5 MG tablet Take 1 tablet (5 mg total) by mouth 3 (three) times daily as needed. 05/21/2024 Active HYDROcodone-acet aminophen (NORCO) 5-325 MG tablet Take 1 tablet by mouth every 8 (eight) hours as needed. 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 Sprain of anterior talofibul ar ligament of left ankle, subsequent encounter 05/24/2024 Social History Tobacco Use Types Packs/Day Years Used Date Smoking Tobacco: Never Smokeless Tobacco: Never Alcohol Use Standard Drinks/Week Comments Not Currently 0 (1 standard drink = 0.6 oz pur e alcohol) Comments Unknown Sex and Gender Information Value Date Recorded Sex Assigned at Not on file Legal Sex Female 5:20 PM CDT Gender Identity Not on file Sexual Orientation Not on file Last Filed Vital Signs Vital Sign Reading Time Taken Comments Blood Pressure 104/70 12/24/2015 5:09 PM CDT Pulse 78 12/24/2015 5:08 PM CDT Temperature - - Respiratory Rate 16 12/24/2015 5:08 PM CDT Oxygen Saturation - - Inhaled Oxygen Concentration - - Weight 95.7 kg (211 lb) 06/06/2024 8:32 AM AGRICULTURAL INSPECTOR Height 162.6 cm (5' 4) 06/06/2024 8:32 AM AGRICULTURAL INSPECTOR Body Mass Index 36.22 06/06/2024 8:32 AM AGRICULTURAL INSPECTOR Plan of Treatment Health Maintenance Due Date Last Done Comments Cervical Cancer Screening Pap Smear (Age 30 to 64) Every 3 Years 1986 Annual Physical 1989 DTaP, Tdap and Td Vaccines (6 - Tdap) 1997 02/07/1991, 06/09/1988, 06/04/1987, Additional history exists Hepatitis C 2004 Cervical Cancer Screening Pap with HPV Testing (Age 30 to 64) Every 5 Years 2016 Cervical Cancer Screening with HPV 2016 COVID-19 Vaccine ( season) 2024 Hepatitis B Vaccines Completed 02/05/1998, 09/11/1997, 06/21/1997 HPV Vaccines Aged Out No longer eligi ble based on patient's age to complete this topic Meningococcal B Vaccine Aged Out No l onger eligible based on patient's age to complete this topic Meningococcal Vaccine Aged Out No deonte michael eligible based on patient's age to complete this topic Pneumococcal Vaccine: Pediatrics (0 to 5 Years) and At-Risk Patients (6 to 49 Years) Aged Out No longer eligible based on patient's age to complete this topic RSV Immunizations Under 20 Months Aged Out No longer eligible based on patient's age to complete this topic Insurance Care Teams Geoscience Technician Relationship Specialty Start Date End Date Kathleen Horvath MD [address] [place] [phone] PCP - General FAMILY PRACTICE 05/24/24
--- OUTSIDE RECORDS SUMMARY | 2025-02-13 17:20 | XMS_ITS | Referral Summary ---
Author Organization [facility] Address [address] [place] [address] Care Team Providers Care Bakery Technician Name Role Phone Hever Barrett DO Primary Care Provider Allergies Active Allergy [...] OF BREATH OR WHEEZING 3 Active vit 69-nymx-feqjc-dha 27mg iron- 800 mcg-250 mg capsuleIndication s:Prevention [...] information to obtain past obstetrical history from [facility]. Social History Tobacco Use Types Packs/Day Years [...] on file Legal Sex Female 3:36 PM OCCUPATIONAL THERAPIST ASSISTANTS Gender Identity Not on file Sexual Orientation [...] 93 kg (205 lb) 10/03/2023 1:48 PM OCCUPATIONAL THERAPIST ASSISTANTS Height 162.6 cm (5' 4) 10/03/2023 1:48 PM OCCUPATIONAL THERAPIST ASSISTANTS Body Mass Index 35.19 10/03/2023 1:48 PM OCCUPATIONAL THERAPIST ASSISTANTS Plan of Treatment Not on file Procedures Procedure Name Priority Date/Time Associated Diagnosis Comments PAP IG, HPV-HR Routine 09/14/2019 2:08 PM OCCUPATIONAL THERAPIST ASSISTANTS Well woman exam from Last 3 Months or Most Recently Relevant to Health Maintenance Results * Pap IG, HPV-hr (09/14/2019 2:08 PM OCCUPATIONAL THERAPIST ASSISTANTS) Clinical indication Comment [facility] - 01 Comment: NEGATIVE FOR INTRAEPITHELIAL LESION OR MALIGNANCY. FUNGAL ORGANISMS MORPHOLOGICALLY CONSISTENT WITH ANIL SPECIES ARE PRESENT. THIS SPECIMEN WAS RESCREENED PART OF OUR STRESS TEST TECHNICIAN PROGRAM. Specimen adequacy: Comment [facility] - 01 [...] without differentiation. Endocervical/vagi nal 09/14/2019 2:08 PM OCCUPATIONAL THERAPIST ASSISTANTS 09/14/2019 Narrative [facility] - 09/19/2019 5:08 PM OCCUPATIONAL THERAPIST ASSISTANTS Performed at: - [facility] [id number] Cement Breaker: Selena Valle MD, Phone: [phone] Performed at: 02 - [facility] [id number] Cement Breaker: Selena Valle MD, Phone: [phone] Specimen Comment: No. of containers..01 ThinPrep Vial Gladys King NP LAB PATHOLOGY ORDERABLES Final R esult [facility] - 01 [facility] 02 from Last 3 Months or Most Recently Relevant to Health Maintenance Insurance [employer] Care Teams Bakery Technician Relationship Specialty Start Date End Date Hever Barrett DO [address] [place] [address] PCP - General Family Medicine 01/11/24
== END 2025-02-13 17:16 | disposition home or self-care (01) ==
LOC: CHSIMG 17:18
PROVIDERS: PCP Family Medicine; Visit Provider Family Medicine
DX: R10.9 Unspecified abdominal pain (principal); K80.20 Calculus of gallbladder without cholecystitis without obstruction
CPT/HCPCS: 74176

== ENCOUNTER 2025-03-20 13:24 | Outpatient (CLI) | payer BC, SELFPAY ==
--- NOTE | ~2025-03-20 | XR_ITS ---
XR lumbar spine 2-3V 03/20/2025 13:40 Indication: Low back pain Procedure: 3 views lumbar spine Comparison: 02/26/2023 Findings: Vertebral body heights are maintained. There is disc narrowing at L5- S1. No acute fracture, subluxation or dislocation. No evidence for spondylolisthesis. Pedicles intact. No gallstone right upper quadrant, partially visualized. Impression: 1: Mild lumbar spondylosis. 2: Cholelithiasis. Reviewed, dictated and finalized at location A. Impression: 1: Mild lumbar spondylosis. 2: Cholelithiasis.
--- OUTSIDE RECORDS SUMMARY | 2025-03-20 13:46 | XMS_ITS | Encounter Summary ---
Author Organization [facility] Address [address] [place] [address] Care Team Providers Care Orthotics Assistant Name Role Phone Unavailable Primary Care Provider Unavailabl e Encounter Details Date Type Department Care Team (Late st Contact Info) Description 03/19/2025 External Device Data [facility]STRACTION Provider, Abstract NO ADDRESS ON FILE Social History Tobacco Use Types Packs/Day Years Used Date Smoking Tobacco: Never Assessed Comments Unknown Sex and Gender Information Value Date Recorded Sex Assigned at Not on file Legal Sex Female 2:42 PM CDT Gender Identity Not on file Sexual Orientation Not on file documented as of this encounter Plan of Treatment Not on file documented as of this encounter Visit Diagnoses Not on filedocumented in this encounter
--- OUTSIDE RECORDS SUMMARY | 2025-03-20 13:46 | XMS_ITS | Clinical Summary ---
Author Organization [facility] Address [address] [facility] [place] [address] Phone Care Team Providers Care Block Operator Name Role Phone Unavailable Primary Care Provider Unavailabl e Encounters Date Type Department Care Team Description 03/19/2025 External Device Data [facility] ABSTRACTION Provider, Abstract 03/18/2025 Telephone [facility] [address] [facility] [address] [facility] [address] [place] [address] Tomi Doshi MD Question from Last 3 Months Social History Tobacco Use Types Packs/Day Years Used Date Smoking Tobacco: Never Assessed Comments Unknown Sex and Gender Information Value Date Recorded Sex Assigned at Not on file Legal Sex Female 2:42 PM CDT Gender Identity Not on file Sexual Orientation Not on file Plan of Treatment Health Maintenance Due Date Last Done Comments HPV VACCINES (1 - 3-dose series) 2001 DTAP/TDAP/TD VACCINES (1 - Tdap) 2005 HEPATITIS B VACCINES (1 of 3 - 19+ 3-dose series) 09/29 HPV/Cotest (21-29) 10/14/2007 CERVICAL CANCER SCREENING 2016 HPV/Cotest (30-65) 2016 PAP SMEAR 2016 INFLUENZA VACCINE (#1) 2025
--- OUTSIDE RECORDS SUMMARY | 2025-03-20 13:46 | XMS_ITS | Clinical Summary ---
Author Organization [facility] B Address [address] [place] [address] Care Team Providers Care Guide Foreign Tour Name Role Phone Hever Barrett DO Primary [...] OF BREATH OR WHEEZING 3 Active vit 17-[id number]-[id number] 27mg iron- 800 mcg-250 mg capsuleIndication s:Prevention [...] information to obtain past obstetrical history from [facility]. Encounters Date Type Department Care Team Description 03/12/2025 11:55 AM CDT Lab [facility] [address] [place] [address] Irregular menstrual cycle 03/12/2025 [facility] [address] [place] [phone] Gladys King NP hCG, blood, quantitative 03/11/2025 [facility] [address] [place] [phone] Gladys King NP Irregular menstrual cycle (Primary Dx) 03/11/2025 Telephone [facility] [address] [place] [address] Gladys King NP from Last 3 Months Family History Medical History Relation Name Comments [...] on file Legal Sex Female 3:36 PM HOME CARE AND HOME HEALTH AIDES TEACHER Gender Identity Not on file Sexual Orientation [...] 93 kg (205 lb) 10/03/2023 1:48 PM HOME CARE AND HOME HEALTH AIDES TEACHER Height 162.6 cm (5' 4) 10/03/2023 1:48 PM HOME CARE AND HOME HEALTH AIDES TEACHER Body Mass Index 35.19 10/03/2023 1:48 PM HOME CARE AND HOME HEALTH AIDES TEACHER Plan of Treatment Health Maintenance Due Date Last Done Comments Hepatitis C Screening 1986 DTaP/Tdap/Td Vaccine (6 - Tdap) 1997 02/07/1991, 06/09/1988, 06/04/1987, Additional history exists Varicella Vaccines (1 of 2 - 13+ 2-dose series) 10/14/1999 HPV Vaccines (1 - 3-dose SCDM series) 2013 Cervical Cancer Screening 09/14/2020 09/14/2019 Regular Well Visit/Exam 18-64 09/14/2020 09/14/2019 Depression Screening 04/05/2024 04/05/2023, 09/14/19 20 Influenza Vaccine (#1) 2025 04/08/2016 Hepatitis B Screening Completed 02/05/1998 , 09/11/1997, 06/21/1997 Pneumococcal vaccine <65 Aged Out No longer eligible based on patient's age to complete this topic Procedures Procedure Name Priority Date/Time Associated Diagnosis Comments HCG, BLOOD, QUANTITATIVE Routine 03/12/2025 12:01 PM CDT Irregular menstrual cycle PAP IG, HPV-HR Routine 09/14/2019 2:08 PM HOME CARE AND HOME HEALTH AIDES TEACHER Well woman exam from Last 3 Months or Most Recently Relevant to Health Maintenance Results * hCG, blood, quantitative (03/12/2025 12:01 PM CDT) hCG, quant <5.0 0.0 - 5.0 IUnits/L [facility] Comment: Interpretive Data Male: < 5 IU/L Non- premenopausal Female: <5 IU/L The Trevor hCG Beta Quant assay procedure was used. Results from different manufacturers or methods may not be comparable. Serial testing should be performed using the same method. Interpretive Data was last revised on 2023 Blood 03/12/2025 12:0 1 PM CDT 03/12/2025 12:27 PM CDT us Gladys King NP LAB BLOOD ORDERABLES Final Resul t [facility] [address] [facility] [place] [address] * Pap IG, HPV-hr (09/14/2019 2:08 PM HOME CARE AND HOME HEALTH AIDES TEACHER) Clinical indication Comment [facility] - 01 Comment: NEGATIVE FOR INTRAEPITHELIAL LESION OR MALIGNANCY. FUNGAL ORGANISMS MORPHOLOGICALLY CONSISTENT WITH ANIL SPECIES ARE PRESENT. THIS SPECIMEN WAS RESCREENED PART OF OUR MACHINE SEWER PROGRAM. Specimen adequacy: Comment [facility] - 01 [...] without differentiation. Endocervical/vagi nal 09/14/2019 2:08 PM HOME CARE AND HOME HEALTH AIDES TEACHER 09/14/2019 Narrative [facility] - 09/19/2019 5:08 PM HOME CARE AND HOME HEALTH AIDES TEACHER Performed at: - [facility] [id number] Marine Rigger: Selena Valle MD, Phone: [phone] Performed at: - [facility] [id number] Marine Rigger: Selena Valle MD, Phone: [phone] Specimen Comment: No. of containers..01 ThinPrep Vial Gladys King TELLER COORDINATOR LAB PATHOLOGY ORDERABLES Final [facility] - 01 LAB [facility] 02 from Last 3 Months or Most Recently Relevant to Health Maintenance Insurance [employer] Care Teams Guide Foreign Tour Relationship Specialty Start Date End Date Hever Barrett DO [address] [place] [address] PCP - General Family Medicine 01/11/24
--- OUTSIDE RECORDS SUMMARY | 2025-03-20 13:46 | XMS_ITS | Encounter Summary ---
Author Organization [facility] Address [address] [place] [address] Care Team Providers Care Queen'S Counsel Name Role Phone Unavailable Primary Care Provider Unavailabl e Reason for Visit * Reason Onset Date Comments Question 03/18/2025 Encounter Details Date Type Department Care Team (Late st Contact Info) Description 03/18/2025 Telephone [facility] [address] [facility] [address] [place] [address] Tomi Doshi MD [address] [facility] [address] [place] [address] Question Social History Tobacco Use Types Packs/Day Years Used Date Smoking Tobacco: Never Assessed Comments Unknown Sex and Gender Information Value Date Recorded Sex Assigned at Not on file Legal Sex Female 2:42 PM CDT Gender Identity Not on file Sexual Orientation Not on file documented as of this encounter Miscellaneous Notes * Telephone Encounter - Lolita Garcia RN - 03/19/2025 2:20 PM CDT Patient states that she has not been able to work for about 2 weeks due to back pain. She was last seen for pain management with Dr. Julio Thomson with prolonged relief. She thinks that her last injection was in April 2023. Her main complaint is low back pain and stiffness. She denies any radiating pain into her lower extremities. She also still has constant numbness in the plantar surfaces from the balls of her feet toher toes. She is taking Motrin and using Biofreeze for pain reduction. Her pain is improved from where it started last week. She states that her weight in down to 188 currently. She is going to get lumbar radiographs that were ordered by her PCP tomorrow at [facility]. She is going to request that her radiographs be power shared to [facility]. She is also going to contact Dr. Thomson to see if a repeat injection is an option. She will call us back with an update. * Telephone Encounter - Tucker Raman - 03/18/2025 3:02 PM CDT Previous [facility] patient/ Would like to speak with you too see if it would be beneficial to see RM. Would like a call when available. documented in this encounter Plan of Treatment Not on file documented as of this encounter Visit Diagnoses Not on filedocumented in this encounter
--- OUTSIDE RECORDS SUMMARY | 2025-03-20 13:46 | XMS_ITS | Encounter Summary ---
Author Organization [facility] Address [address] [place] [address] Care Team Providers Care Global Creative Chairman Name Role Phone Shawn Luna MD Unavailable Unavailable Kathleen Horvath MD Primary Care Provider +1- [phone] Encounter Details Date Type Department Care Team (Late st Contact Info) Description 10/15/2017 Abstract [facility] [address] [place] [address] , Generic ConversionMD Social History Tobacco Use [...] on filedocumented in this encounter Care Teams Global Creative Chairman Relationship Specialty Start Date End Date Kathleen Horvath MD [address] [place] [phone] PCP - General FAMILY PRACTICE 05/24/24 Shawn Luna MD CARDIOVASCULAR DISEASE 03/26/16 08/08/19 documented as of this encounter
--- OUTSIDE RECORDS SUMMARY | 2025-03-20 13:46 | XMS_ITS | Encounter Summary ---
Author Organization [facility] Healthcare Address [address] [place] [address] Care Team Providers Care Screen Print Operator Name Role Phone Nena Heveredgar SamuelMatias Primary Care Provider Encounter Details Date Type Department Care Team (Late st Contact Info) Description 03/11/2025 Telephone [facility] [address] [place] [address] [address] [place] [address] Gladys King, SNAGGER [address] [place] [address] [address] [address] Social History Tobacco Use Types Packs/Day Years Used Date Smoking Tobacco: Never Alcohol Use Standard Drinks/Week Comments [...] on file 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 I called pt and l/m on v/m-HIPAA on file. * Telephone Encounter - Susan Lerma - 03/11/2025 2:40 PM CDT Pt called into office and states she got a nexplanon inserted in August by her PCP. Patient statesshe has been feeling off and proceed to take a test which showed a faint line. Patient wants to schedule a nexplanon removal and proceed with OB care. Please place labs per Gladys: call patient when completed and patient is scheduled for follow up next week pending lab results. documented in this encounter Plan of Treatment Not on file documented as of this encounter Visit Diagnoses Not on filedocumented in this encounter Care Teams Screen Print Operator Relationship Specialty Start Date End Date Hever Barrett DO [address] [place] [address] PCP - General Family Medicine 01/11/24 documented as of this encounter
--- OUTSIDE RECORDS SUMMARY | 2025-03-20 13:46 | XMS_ITS | Encounter Summary ---
Author Organization [facility] Healthcare Address [address] [place] [address] Care Team Providers Care Foundation Stage Teacher Name Role Phone Hever Barrett DO Primary Care Provider Encounter Details Date Type Department Care Team ([facility] st Contact Info) Description 03/12/2025 Results Follow-Up [facility] [address] [place] [address] [address] [place] [address] Gladys King, [employer] STORAGE ARCHITECT [address] [place] [address] [address] [address] hCG, blood, quantitative Social History Tobacco Use Types Packs/Day Years [...] on file 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
--- OUTSIDE RECORDS SUMMARY | 2025-03-20 13:46 | XMS_ITS | Clinical Summary ---
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 Height 162.6 cm (5' 4) 06/06/2024 8:32 AM BIOLOGICAL TECHNICAL OFFICER Body Mass Index 36.22 06/06/2024 8:32 AM BIOLOGICAL TECHNICAL OFFICER Plan of Treatment Health Maintenance Due Date Last Done Comments Cervical Cancer Screening Pap Smear (Age 30 to 64) Every 3 Years 1986 Annual Physical 1989 DTaP, Tdap and Td Vaccines (6 - Tdap) 1997 02/07/1991, 06/09/1988, 06/04/1987, Additional history exists Hepatitis C 2004 HPV Vaccines (1 - 3-dose SCDM series) 2013 Cervical Cancer Screening Pap with HPV Testing (Age 30 to 64) Every 5 Years 2016 Cervical Cancer Screening with HPV 2016 COVID-19 Vaccine ( season) 2024 Hepatitis B Vaccines Completed 02/05/1998, 09/11/1997, 06/21/1997 Meningococcal B Vaccine Aged Out No l [...] to complete this topic Insurance Care Teams Funeral Prearrangement Counselor Relationship Specialty Start Date End Date Kathleen Horvath MD [address] [place] [phone] PCP - General FAMILY PRACTICE 05/24/24
== END 2025-03-20 13:25 | disposition home or self-care (01) ==
PROVIDERS: PCP Registered Nurse; Visit Provider Registered Nurse
DX: M54.50 Low back pain, unspecified (principal); M43.06 Spondylolysis, lumbar region; K80.50 Calculus of bile duct without cholangitis or cholecystitis without obstruction
CPT/HCPCS: 72100